=== PATIENT | male | born 1970 | race Caucasian/White ===

== ENCOUNTER 2019-09-14 17:19 | Outpatient (CLI) | payer BC, SELFPAY ==
--- NOTE | ~2019-09-14 | XR_ITS ---
EXAMINATION: XR chest 2V DATE: 09/14/2019 17:33 INDICATION: Chronic cough TECHNIQUE: PA and lateral views of the chest were obtained. COMPARISON: Chest radiograph dated 01/31/2015 FINDINGS: The lungs remain clear with no focal airspace opacities, pulmonary edema, pleural effusion or pneumot horax. The cardiomediastinal silhouette is normal. Mild thoracic spondylosis. IMPRESSION: 1. No acute cardiopulmonary disease. Reviewed, dictated and finalized at location A.
== END 2019-09-14 17:20 | disposition home or self-care (01) ==
PROVIDERS: PCP Internal Medicine; Visit Provider Internal Medicine
DX: R05 Cough (principal)
CPT/HCPCS: 71046

== ENCOUNTER 2019-09-21 13:11 | Outpatient (CLI) | payer BC, SELFPAY | END 2019-09-21 13:12 | disposition home or self-care (01) | LOC: CHSCARD 13:14 | PROVIDERS: PCP Internal Medicine; Visit Provider Internal Medicine | DX: R05 Cough (principal) | CPT/HCPCS: 94060; 94726; 94729; 95012 ==

== ENCOUNTER 2019-10-23 08:22 | Outpatient (CLI) | payer BC, SELFPAY | END 2019-10-23 08:23 | disposition home or self-care (01) | PROVIDERS: PCP Internal Medicine; Visit Provider Anesthesiology | DX: N39.0 Urinary tract infection, site not specified (principal) | CPT/HCPCS: 87086 ==

== ENCOUNTER 2019-10-28 00:30 | Outpatient (CLI) | payer BC, SELFPAY ==
[2019-10-28 18:30] LABS: SARS-CoV-2 RNA PCR Negative
== END 2019-10-28 00:31 | disposition home or self-care (01) ==
LOC: ANHCOVIDDT 00:30
PROVIDERS: PCP Internal Medicine; Visit Provider Urology
DX: Z01.818 Encounter for other preprocedural examination (principal); Z11.59 Encounter for screening for other viral diseases
CPT/HCPCS: 87635; C9803; U0003

== ENCOUNTER 2019-10-31 01:52 | Day surgery (SDC) | payer BC, SELFPAY ==
[2019-10-18 09:54] VITALS: BMI 26.6
[2019-10-31 10:11] VITALS: BMI 26.9
--- NOTE | 2019-10-31 10:12 | WPDANESEPPF ---
Anes - Initial Pre Proc Eval Procedure: Operation Date: 10/31/19 12:00 Proposed Procedures p Flexible Cystoscopy, Possible Urethral Dilation - Andrey Ng MD Date/Time: 10/31/19 10:12 Surgeon: Andrey Ng MD Pre Op Diagnosis: recurring UTI Patient Data Age: 49 Gender: M Height: 1.75 m Weight: 81.65 kg Allergies Allergy/AdvReac Type Severity Reaction Status Date / Time No Known Allergies Allergy Verified 10/31/19 10:26 Home Medications Medication Instructions Recorded Confirmed Type Hcg 500 unit SUBLINGUAL WEEKLY 10/18/19 10/31/19 History anastrozole 1 mg PO WEEKLY 10/18/19 10/31/19 History omeprazole 20 mg PO DAILY 10/18/19 10/31/19 History testosterone cypionate 150 mg IM WEEKLY 10/18/19 10/31/19 History Patient hx anesthesia problems: none Family hx anesthesia problems: none [facility] Past Medical History Medical History (Updated 10/31/19 @ 10:12 by Jett Fairchild DO) Anxiety GERD (gastroesophageal reflux disease) FAHAD (obstructive sleep apnea) Osteoarthritis Social History Social History Smoking status: Never smoker Spiritual care concerns: No Anes - Eval Final PreProcedure Day of Procedure 10/31/19 10:12 Patient weight: overweight Heart: regular rate and rhythm Lungs: clear to auscultation and normal air movement Airway: Mallampati scale class II Neurological: alert and oriented Last oral intake: >/= 8 hours ASA classification: III Emergent: no Anesthetic plan: proceed Anesthesia type and monitoring: general GIVS and standard monitoring Informed Consent: The patient's anesthetic plan and its attendant risks and benefits were discussed with the patient/family/POA. Questions were solicited and answers provided to the satisfaction of the patient/family/POA.
[2019-10-31 10:24] VITALS: BP 125/71; PULSE 61; RESP 16; TEMP 36.6; O2SAT 100
[2019-10-31] MEDS: LACTATED RINGERS 1,000 ML 30 ML IV CONT (11:00)
--- NOTE | 2019-10-31 11:45 | WPDHPUPDATE1 ---
History and Physical Update Update Date/Time: 10/31/19 11:45 History and Physical has been reviewed, including an updated exam of the patient. There are NO changes in the patient's condition. Risks, benefits, and alternatives have been discussed and questions answered. Patient agrees to proceed with procedure.
[2019-10-31] MEDS: ceFAZolin 2 GM/D5W 50 ML 2 GM/50 ML BAG IVPB (12:17)
[2019-10-31] MEDS: LIDOCAINE HCL 2% GEL UROJET 10 ML PKG MUCOUS MEM (12:25)
[2019-10-31 12:45] VITALS: BP 127/65; PULSE 87; RESP 14; O2SAT 95
--- NOTE | 2019-10-31 12:52 | PM.PROC ---
Procedure Note - Detailed Date of procedure: 10/31/19 Pre-op diagnosis: recurring UTI Hypospadias Post-op diagnosis: same Procedure performed: urethral dilation/ calibration to 22 Romanian Flexible cystoscopy Description of procedure: patient was taken the operative suite and correctly identified. Once anesthesia was obtained he was placed in dorsal lithotomy position and prepped draped usual sterile fashion. His meatus is subcoronal hypospadias. We ended up placing male sounds and actually were able to dilate up to 22 Romanian without any difficulty. There really was no evidence of stricture or narrowing at this point time. A 16 Romanian flexible scope was then inserted into the meatus. There were no other urethral strictures noted. External sphincter is intact. Prostate has minimal lateral lobe hypertrophy. Upon entering the bladder both ureteral orifices in normal anatomic position. There were no bladder tumors or other irregularities noted at this time. Scope was removed. 2% viscous lidocaine was inserted into the urethra. Patient is taken recovery room stable condition. Anesthesia: GLMA Surgeon: Andrey Ng MD Drains: No Packing: No Pathology: none sent Complications: No immediate complications Condition: stable Disposition: PACU
[2019-10-31 13:15] VITALS: BP 113/65; PULSE 63; RESP 14
== END 2019-10-31 13:35 | disposition home or self-care (01) ==
PROVIDERS: PCP Internal Medicine; Visit Provider Urology
PROC: 0T7D8ZZ Dilation of Urethra, Via Natural or Artificial Opening Endoscopic (ICD-10-PCS; CPT 52281; principal; 2019-10-31 12:00)
DX: N39.0 Urinary tract infection, site not specified (principal); Q54.1 Hypospadias, penile; G47.33 Obstructive sleep apnea (adult) (pediatric); K21.9 Gastro-esophageal reflux disease without esophagitis; F41.9 Anxiety disorder, unspecified; Z79.811 Long term (current) use of aromatase inhibitors
CPT/HCPCS: 52281; A9270; J0690; J2250; J2704; J3010; J7120

== ENCOUNTER 2020-04-12 17:01 | Outpatient (CLI) | payer BC, SELFPAY ==
[2020-04-14 17:18] LABS: H pylori, Urea Breath NOT DETECTED (NOT DETECTED)
== END 2020-04-12 17:02 | disposition home or self-care (01) ==
LOC: CHSLAB 17:04
PROVIDERS: PCP Family Medicine; Visit Provider Family Medicine
DX: K21.9 Gastro-esophageal reflux disease without esophagitis (principal)
CPT/HCPCS: 83013

== ENCOUNTER 2020-12-24 11:27 | Emergency (ER) | payer BC, SELFPAY ==
[2020-12-24] VITALS (8 sets, daily range): BP systolic 142–178; BP diastolic 87–102; PULSE 90–113; RESP 11–23; TEMP 37.3; O2SAT 95–98
--- NOTE | ~2020-12-24 | XR_ITS ---
EXAMINATION: XR lumbar spine 2-3V EXAM DATE: 12/24/2020 12:27 INDICATION: Worsening chronic low back pain radiating down legs bilaterally. TECHNIQUE: Lumber spine frontal, lateral, lateral L5-S1 projections for interpretation. Comparison is made to prior examination from 12/19/2015. FINDINGS: There is mild to moderate lumbar dextroscoliosis and disc disease from L3 through S1. Mild to moderate lumbar facet arthropathy. Evaluation of the sacrum and transverse processes is somewhat l imited due to overlying bowel gas. The vertebral bodies are aligned in the AP dimension. No spondylol ysis suspected. IMPRESSION: Mild to moderate dextro scoliosis, lumbar spondylosis. Reviewed, dictated and finalized at location A.
[2020-12-24 12:37] LABS: Basophils Percent Auto 0.1 % (0.2-1.2); Hematocrit 44.9 % (42.0-52.0); Immature Granulocyte Absolute 0.03 K/mm3 (0.00-0.031); Immature Granulocyte Percent A 0.3 % (0-0.5); Lymphocytes Absolute Auto 0.75 K/mm3 (0.9-3.2); Lymphocytes Percent Auto 8.5 % (18.3-44.2); Mean Corpuscular HGB Conc 35.6 g/dl (32-36); Mean Corpuscular Volume 81.3 fl (80-100); Mean Platelet Volume 10.1 fl (7.4-10.4); Monocytes Absolute Auto 0.2 K/mm3 (0.1-0.6); Neutrophils Absolute Auto 7.9 K/mm3 (1.3-6.7); Neutrophils Percent Auto 89.1 % (45.5-73.1); Platelet Count Result 230 k/mm3 (150-375); Red Blood Count 5.52 M/mm3 (4.6-6.20); White Blood Count 8.9 K/mm3 (4.5-10.0)
[2020-12-24 12:55] LABS: Add Urine Microscopic? YES; Appearance Urine Clear (Clear); Bilirubin Urine Negative (Negative); Blood Urine Negative (Negative); Color Urine Straw (Yellow); Glucose Urine UA Negative (Negative); Ketones Urine Trace mg/dL (Negative); Leukocyte Esterase Ur Negative LEU/UL (Negative); Mucus Urine Rare /lpf; Nitrate Urine Negative (Negative); Protein Urine Negative (Negative); Specific Grav Ur 1.011 (1.001-1.035); Urobilinogen Urine Negative mg/dL (<2.0); WBC Urine 0-3 /hpf
[2020-12-24 12:56] LABS: Anion Gap 10 mmol/L (8-16); Blood Urea Nitrogen 17 mg/dL (9-20); Carbon Dioxide 22 mmol/L (22-30); Chloride 104 mmol/L (98-107); Estimated CRCL calculation 78 ml/min; Estimated Glomerular Filt Rate > 60; Glucose 115 mg/dL (65-110); Sodium 136 mmol/L (137-145)
--- NOTE | 2020-12-24 13:03 | ED.GENADULT ---
HPI - General Adult General Chief complaint: Unspecified Stated complaint: back pain Time Seen by Provider: 12/24/20 11:39 Source: patient History of Present Illness HPI narrative: Patient is a 50 y/o male complaining of intermittent right leg pain for several months. He was diagnosed with herniated disc of back and has seen neurosurgery and pain management. He states that he had steroid injection which help initially, but did not help when he received a second injection. He state that his pain is worse. He describes his pain as a burning sensation. He rates his pain as 10/10 at worst, but 1/10 currently. He states that he contacted his pain management doctor's office and was told to come to ED for possible repeat imagining. He is able to ambulate with cane. He is able to void, but has difficulty due to pain. He has chronic numbness to right leg. He has no numbness in saddle area. Related Data Home Medications Medication Instructions Recorded Confirmed anastrozole 1 mg PO WEEKLY 10/18/19 02/19/20 testosterone cypionate 150 mg IM WEEKLY 10/18/19 02/19/20 Allergies Allergy/AdvReac Type Severity Reaction Status Date / Time No Known Allergies Allergy Verified 12/11/20 08:23 Review of Systems Constitutional: Constitutional: Denies chills, Denies fever(s), Denies headache(s) and Denies weakness Eyes: Eyes: Denies blurry vision ENT: Denies headache(s) and Denies neck pain Cardiovascular: Cardiovascular: Denies chest pain and Denies dyspnea Respiratory: Respiratory: Denies cough and Denies dyspnea Gastrointestinal: Gastrointestinal: Denies abdominal pain, Denies diarrhea, Denies nausea and Denies vomiting Genitourinary: Genitourinary: Denies hematuria and Denies dysuria Musculoskeletal: Musculoskeletal: Reports back pain, Denies neck pain and Reports other (right leg pain) Neurologic: Denies headache(s), Reports numbness, Reports paresthesias and Denies weakness PMFSH Past Medical History Medical History Anxiety Arthritis Encounter for screening colonoscopy GERD (gastroesophageal reflux disease) FAHAD (obstructive sleep apnea) Osteoarthritis Family History Family History Father Diabetes mellitus Social History Social History Smoking status: Never smoker Spiritual care concerns: No Exam Const: General: no acute distress and well developed Orientation/consciousness: oriented to person, oriented to place, oriented to time and patient oriented x3 HENMT: Head: normocephalic Ears: external ears normal General nose exam: Normal external nose present Eyes: General: appearance normal, both eyes and all related structures Conjunctivae: conjunctivae normal Neck: Neck: normal visual inspection and full ROM Chest: Chest palpation & inspection: normal inspection of the chest and no tenderness Resp: Effort & Inspection: normal respiratory effort Auscultation: clear to auscultation bilaterally Cardio: Rate: regular rate Rhythm: regular rhythm GI: GI Palp: No abdominal tenderness and Yes Soft to palpation Skin: General skin exam: normal color and turgor normal Neuro: General: oriented to person, oriented to place, oriented to time and patient oriented x3 Cognition (Neuro): normal cognition Motor exam (neuro): 5/5 motor strength present throughout Sensory Exam: Sensory deficit (Neuro) (decreased sensation right leg) Extrem: General: normal to inspection, full ROM and no pedal edema Psych: Appearance: grossly normal Mental Status: mental status grossly normal Affect: normal affect Course Consultations Consultation #1: Discussed with JEWEL Parrish at patient's pain management center. She recommends discharge and patient can follow up. Date: 12/24/20 Time: 13:27 Vital Signs Vital signs: Vital Signs Temperature 37.3 C 12/24/20 11:26 Pulse Ra
[2020-12-24] MEDS: diazePAM INJ (*CRX) 10 MG/2 ML SYRINGE 5 MG IV PUSH (15:13)
[2020-12-24] MEDS: KETOROLAC 15 MG/ML VIAL (*BKC) IV PUSH (15:14)
--- NOTE | 2020-12-24 16:23 | PC.NURSE ---
This nurse attempted to get patient up, patient was unable to tolerate log rolling onto his side.
[2020-12-24] MEDS: CYCLOBENZAPRINE HCL 10 MG TABLET PO (16:38)
[2020-12-24] MEDS: fentaNYL CITRATE INJ (*CRX) 100 MCG/2 ML VIAL 50 MCG IV PUSH ×2 (16:38→18:59)
== END 2020-12-24 20:20 | disposition home or self-care (01) ==
PROVIDERS: Emergency Provider Emergency Medicine; PCP Family Medicine
DX: M51.16 Intervertebral disc disorders with radiculopathy, lumbar region (principal); M19.90 Unspecified osteoarthritis, unspecified site; K21.9 Gastro-esophageal reflux disease without esophagitis; G47.33 Obstructive sleep apnea (adult) (pediatric)
CPT/HCPCS: 36415; 72100; 80048; 81001; 85025; 96374; 96375; 96376; 99284; A9270; J1885; J3010; J3360

== ENCOUNTER 2021-01-07 16:53 | Outpatient (RCR) | payer BC, SELFPAY ==
--- NOTE | 2021-01-14 19:50 | PTOPEVAL ---
Thank you for referring Sina Reyes to [facility].? The patient is scheduled to be seen for therapy? ____x/week for ___ weeks. Please review, sign, date and return this plan of care SRIKANTH. I agree with and certify that the following plan of care is medically necessary. Referring Physician Date Admitting Provider: Attending Provider: Jayne العلي Referring Provider: *PT Outpatient Evaluation Start: 01/07/21 17:03 Freq: Status: Active Protocol: Document 01/07/21 17:04 [facility] (Rec: 01/07/21 17:44 [facility] [id number]) Therapy Assessment Status Assessment Status Assessment Status Evaluation Outpatient Past Medical History Neurological History Hx Neurological Disorders No Significant History Cardiovascular History Hx Cardiac Disorders No Significant History Respiratory History Hx Sleep Apnea Yes: USES CPAP Gastrointestinal History Hx Gastroesophageal Reflux Disease Yes Genitourinary History Hx Urinary Tract Infection Yes Musculoskeletal History Hx Arthritis Yes Hx Back Pain Yes Hx Degenerative Disk Disease Yes Hx Spinal Surgery Yes: REPAIR OF HERNIATED DISC 2016- L4-L5 Hematological History Hx Hematological Disorders No Significant History Endocrine History Hx Other Endocrine Disorders Yes: THYROID NODULE- NEGATIVE BIOPSY HEENT History Hx Sinus Problems Yes Integumentary History Hx Eczema Yes Reproductive History Hx Hormone Therapy Yes Psychosocial History Hx Anxiety Yes Pain History History of Any Previous or Ongoing No Significant History Instance of Pain Anesthesia History Hx Anesthesia Reactions No Significant History Evaluation Information Problem Diagnosis Lumbar HNP L4-L5 R side radiculopathy Onset 01/03/21 Additional Evaluation Detail oswestry = 52% functionally declined Subjective Information patient reports he has been Query Text:As Reported By Patient/ having symptoms for months. he Family reports he has done 2 bouts of steroids. he reports the 2nd bout worked for his pain, but he had to stop taking them due to adverse reactions. he reports he had an injection and felt pain free for about a month after this. he reports the 2nd shot did not give him any relief. he reports mild
--- NOTE | 2021-02-23 12:28 | PTOPEVAL ---
Thank you for referring Sina eRyes to [facility].? The patient is scheduled to be seen for therapy? ____x/week for ___ weeks. Please review, sign, date and return this plan of care SRIKANTH. I agree with and certify that the following plan of care is medically necessary. Referring Physician Date Admitting Provider: Attending Provider: Jayne العلي Referring Provider: *PT Outpatient Evaluation Start: 01/07/21 17:03 Freq: Status: Active Protocol: Document 02/18/21 09:00 [facility] (Rec: 02/23/21 12:27 [facility] [id number]) Therapy Assessment Status Assessment Status Assessment Status Progress Outpatient Past Medical History Neurological History Hx Neurological Disorders No Significant History Cardiovascular History Hx Cardiac Disorders No Significant History Respiratory History Hx Sleep Apnea Yes: USES CPAP Gastrointestinal History Hx Gastroesophageal Reflux Disease Yes Genitourinary History Hx Urinary Tract Infection Yes Musculoskeletal History Hx Arthritis Yes Hx Back Pain Yes Hx Degenerative Disk Disease Yes Hx Spinal Surgery Yes: REPAIR OF HERNIATED DISC 2016- L4-L5 Hematological History Hx Hematological Disorders No Significant History Endocrine History Hx Other Endocrine Disorders Yes: THYROID NODULE- NEGATIVE BIOPSY HEENT History Hx Sinus Problems Yes Integumentary History Hx Eczema Yes Reproductive History Hx Hormone Therapy Yes Psychosocial History Hx Anxiety Yes Pain History History of Any Previous or Ongoing No Significant History Instance of Pain Anesthesia History Hx Anesthesia Reactions No Significant History Evaluation Information Problem Diagnosis Lumbar HNP L4-L5 R side radiculopathy Onset 01/03/21 Additional Evaluation Detail oswestry = 12% Subjective Information patient reports he feels Query Text:As Reported By Patient/ great this date. he reports Family this is the best his back has felt in a long time. he reports no pain today. he reports he has been back to riding his bike and working without issues. he reports he does get some tightness from time to time in the lower back but reports with HEP exercises he is able to relieve and manage this tightness. Megan
--- NOTE | 2021-03-26 06:51 | PCPTNOTE ---
03/26/21 - patient was called yesterday and has been doing well at home. he reports he is managing flare ups well on his own. as of this date, his chart will be dc'd from skilled PT services and all progress towards goals will be taken from his most recent evaluation/note. MILAGROS
== END 2021-02-18 09:27 | disposition home or self-care (01) ==
LOC: CHSPT 16:53
DX: M51.26 Other intervertebral disc displacement, lumbar region (principal)
CPT/HCPCS: 97014; 97110; 97140; 97161; 97530; G0283

== ENCOUNTER 2021-05-02 13:01 | Outpatient (CLI) | payer BC, SELFPAY ==
[2021-05-02 13:48] LABS: Add Urine Microscopic? YES; Bilirubin Urine Negative (Negative); Blood Urine Negative (Negative); Color Urine Light Yellow (Yellow); Glucose Urine UA Negative (Negative); Ketones Urine Negative (Negative); Leukocyte Esterase Ur 1+ LEU/UL (Negative); Nitrate Urine Negative (Negative); Protein Urine Negative (Negative); Specific Grav Ur 1.025 (1.010-1.020); Urobilinogen Urine 0.2 mg/dL (0.2-1.0)
[2021-05-02 13:53] LABS: Appearance Urine Sl Cloudy (Clear); RBC Urine 0-2 /hpf (0-2); Squamous Epithelial Cell Urine Rare /hpf (Few); WBC Urine 31-50 /hpf (0-3)
[2021-05-02 13:54] LABS: Bacteria Urine Trace /hpf
== END 2021-05-02 13:02 | disposition home or self-care (01) ==
LOC: CHSLAB 13:03
PROVIDERS: PCP Family Medicine; Visit Provider Family Medicine
DX: R30.0 Dysuria (principal)
CPT/HCPCS: 81001; 87077; 87086; 87088; 87186